=== PATIENT | female | born 1985 | race Caucasian/White ===

== ENCOUNTER 2019-08-07 10:08 | Emergency (ER) | payer OTHER ==
[~2019-08-07] VITALS: Ht 152 cm; Wt 81.0 kg
[2019-08-07 10:44] LABS: CLARITY,URINE CLOUDY; COLOR,URINE DARK YELLOW; GLUCOSE, URINE (UA) NEGATIVE (NEGATIVE); KETONES,URINE NEGATIVE (NEGATIVE); LEUKOCYTE ESTERASE ,URINE NEGATIVE (NEGATIVE); NITRITE,URINE NEGATIVE (NEGATIVE); PH,URINE 5.5 (5-9); PROTEIN,URINE 2+ (NEGATIVE)
[2019-08-07 10:46] LABS: BASOPHILS # (AUTO) 0.1 10^3/uL (0.0-0.1); BASOPHILS % (AUTO) 1 % (0-10); EOSINOPHILS # (AUTO) 0.1 10^3/uL (0.0-0.3); EOSINOPHILS % (AUTO) 1 % (0-10); HEMATOCRIT 39 % (35-52); HEMOGLOBIN 13.4 G/DL (11.5-16.0); LYMPHOCYTES # (AUTO) 1.4 X 10^3 (1.0-4.0); LYMPHOCYTES % (AUTO) 21 % (12-44); MEAN CORPUSCULAR HEMOGLOBIN 34 PG (25-34); MEAN CORPUSCULAR HGB CONC 34 G/DL (32-36); MEAN CORPUSCULAR VOLUME 100 FL (80-99); MEAN PLATELET VOLUME 11.9 FL (7.4-10.4); MONOCYTES # (AUTO) 0.6 X 10^3 (0.0-1.0); MONOCYTES % (AUTO) 9 % (0-12); NEUTROPHILS # (AUTO) 4.7 X 10^3 (1.8-7.8); NEUTROPHILS % (AUTO) 69 % (42-75); PLATELET COUNT 224 10^3/uL (130-400); RED CELL DISTRIBUTION WIDTH 13.2 % (10.0-14.5); WHITE BLOOD COUNT 6.9 10^3/uL (4.3-11.0)
[2019-08-07 10:59] LABS: BACTERIA,URINE FEW /HPF; BILIRUBIN,URINE 1+ (NEGATIVE); SQUAMOUS EPITHELIAL CELL,UR 25-50 /HPF
[2019-08-07 11:00] LABS: AMORPHOUS SEDIMENT,UR FEW AMOR URATES /LPF
[2019-08-07 11:03] LABS: BUN/CREATININE RATIO 12; CALCIUM 9.2 MG/DL (8.5-10.1); CARBON DIOXIDE 21 MMOL/L (21-32); CHLORIDE 105 MMOL/L (98-107); CREATININE SERUM 0.75 MG/DL (0.60-1.30); GFR ESTIMATED > 60; GLUCOSE 95 MG/DL (70-105); SODIUM 135 MMOL/L (135-145)
--- NOTE | 2019-08-07 13:08 | ED GU-Female ---
General Chief Complaint: SALES ASSISTANT DISPLAYS Stated Complaint: 5 WKS PREG/VAG BLEEDING Nursing Triage Note: PT CO OF VAGINAL BLEEDING SMALL AMOUNT AND IS . LMP 06/19 Nursing Sepsis Screen: No Definite Risk Source: patient Exam Limitations: no limitations History of Present Illness Date Seen by Provider: Aug 07, 2019 Time Seen by Provider: 13:08 Initial Comments 33 year old female patient presents with c/o a small amount of vaginal bleeding at 0930 this AM x 1 episode when she wiped and a small amount of blood in the toilet. Patient reports her last menstrual period was 06/19/19, but states she had intercourse July 02 and one time during the first week of July. Den ies having intercourse for several weeks before July 02. Denies abdominal pain, dysuria, frequency, hematuria. Patient reports similar symptoms with her second . Patient is scheduled to see Dr. Capone on August 30 for her first appointment. Timing/Duration: this morning, gone now Severity/Quality: mild Location: vaginal Activities at Onset: other (urinating) Prior Genitourinary Problems: none Sexual [place] History: less than 2 months ago, single partner Modifying Factors: Worsens With Other (denies modifying factors) Allergies and Home Medications Allergies Coded Allergies: No Known Drug Allergies (Unverified , 08/07/19) Home Medications Nitrofurantoin Monohyd/M-Cryst 100 Mg Capsule, 1 TAB PO BID Prescribed by: HERLINDA MICHELLE on 08/07/19 1345 Patient Home Medication List Home Medication List Reviewed: Yes Review of Systems Review of Systems Constitutional: No chills, No diaphoresis, No dizziness, No fever, No malaise, No weakness EENTM: no symptoms reported Respiratory: No cough, No dyspnea on exertion, No phlegm, No short of breath Cardiovascular: No chest pain, No edema, No palpitations, No syncope Gastrointestinal: No abdominal pain, No constipation, No diarrhea, No loss of appetite, No nausea, No vomiting Genitourinary: see HPI; denies burning, denies discharge, denies dysuria, denies frequency, denies flank pain, denies pain; other (vaginal bleeding) : Yes LMP: Jun 19, 2019 Musculoskeletal: No back pain Skin: no symptoms reported Psychiatric/Neurological: No Symptoms Reported Endocrine: No Symptoms Reported All Other Systemes Reviewed Negative Unless Noted: Yes (Negative excepted noted.) Past [id number]-[id number] Hx Past Med/Social Hx: Reviewed Nursing Past Med/Soc Hx Patient Social History Recent Foreign Travel: No Contact w/Someone Who Travel: No Recent Infectious Disease Expo: No Past Medical History Surgeries: Yes Section Respiratory: No Cardiac: No Neurological: No : Yes Expected Date of Delivery: Mar 24, 2020 Last Menstrual Period: Jun 19, 2019 Hx : 3 Hx Para: 2 Hx Total # of Abortions (Sp): 0 Reproductive Disorders: No Female Reproductive Disorders: Denies Genitourinary: No Gastrointestinal: No Musculoskeletal: No Endocrine: No Family Medical History Reviewed Nursing Family Hx No Pertinent Family Hx Physical Exam Vital Signs Vital Signs - First Documented 08/07/19 10:12 Temp 36.8 Pulse 74 Resp 20 B/P (MAP) 133/79 (97) Pulse Ox 100 Capillary Refill : Less Than 3 Seconds Height, Weight, BMI Height: '" Weight: lbs. oz. kg; 35.00 BMI Method: General Appearance: WD/WN, no apparent distress HEENT: PERRL/EOMI, pharynx normal Neck: supple, normal inspection Cardiovascular: normal peripheral pulses, regular rate, rhythm, no edema, no gallop, no murmur Respiratory: lungs clear, normal breath sounds, no respiratory distress, no accessory muscle use Gastrointestinal: normal bowel sounds, non tender, soft, no organomegaly; No distended Pelvic: other (pelvic exam deferred. Patient states she is scheduled to see Dr. Capone on August 30.) Back: normal inspection, no CVA tenderness Extremities: no pedal edema, normal capillary refill Neurologic/Psychiatric: alert, normal mood/affect, oriented x 3 Skin: normal color, warm/dry Progress/Results/Core Measures Suspected Sepsis Recent Fever Within 48 Hours: No Infection Criteria Present: None New/Unexplained Altered Menta: No Sepsis Screen: No Definite Risk SIRS Temperature: Pulse: 74 Respiratory Rate: 20 Laboratory Tests 08/07/19 10:39: White Blood Count 6.9 Blood Pressure 133 /79 Mean: 97 Laboratory Tests 08/07/19 10:39: Creatinine 0.75, Platelet Count 224 Results/Orders Lab Results Laboratory Tests Test 08/07/19 10:15 08/07/19 10:39 Range/Units Urine Color DARK YELLOW Urine Clarity CLOUDY Urine pH 5.5 5-9 Urine Specific [place] >=1.030 1.016-1.022 Urine Protein 2+ H NEGATIVE Urine Glucose (UA) NEGATIVE NEGATIVE Urine Ketones NEGATIVE NEGATIVE Urine Nitrite NEGATIVE NEGATIVE Urine Bilirubin 1+ H NEGATIVE Urine Urobilinogen 1.0 < = 1.0 MG/DL Urine Leukocyte Esterase NEGATIVE NEGATIVE Urine RBC (Auto) 3+ H NEGATIVE Urine RBC NONE /HPF Urine WBC 5-10 H /HPF Urine Squamous Epithelial Cells 25-50 H /HPF Urine Crystals NONE /LPF Urine Amorphous Sediment FEW MAURILIO URATES H /LPF Urine Bacteria FEW H /HPF Urine Casts NONE /LPF Urine Mucus NEGATIVE /LPF Urine Culture Indicated YES White Blood Count 6.9 4.3-11.0 10^3/uL Red Blood Count 3.93 L 4.35-5.85 10^6/uL Hemoglobin 13.4 11.5-16.0 G/DL Hematocrit 39 35-52 % Mean Corpuscular Volume 100 H 80-99 FL Mean Corpuscular Hemoglobin 34 25-34 PG Mean Corpuscular Hemoglobin Concent 34 32-36 G/DL Red Cell Distribution Width 13.2 10.0-14.5 % Platelet Count 224 130-400 10^3/uL Mean Platelet Volume 11.9 H 7.4-10.4 FL Neutrophils (%) (Auto) 69 42-75 % Lymphocytes (%) (Auto) 21 12-44 % Monocytes (%) (Auto) 9 0-12 % Eosinophils (%) (Auto) 1 0-10 % Basophils (%) (Auto) 1 0-10 % Neutrophils # (Auto) 4.7 1.8-7.8 X 10^3 Lymphocytes # (Auto) 1.4 1.0-4.0 X 10^3 Monocytes # (Auto) 0.6 0.0-1.0 X 10^3 Eosinophils # (Auto) 0.1 0.0-0.3 10^3/uL Basophils # (Auto) 0.1 0.0-0.1 10^3/uL Sodium Level 135 135-145 MMOL/L Potassium Level 4.0 3.6-5.0 MMOL/L Chloride Level 105 98-107 MMOL/L Carbon Dioxide Level 21 21-32 MMOL/L Anion Gap 9 5-14 MMOL/L Blood Urea Nitrogen 9 7-18 MG/DL Creatinine 0.75 0.60-1.30 MG/DL Estimat Glomerular Filtration Rate > 60 BUN/Creatinine Ratio 12 Glucose Level 95 70-105 MG/DL Calcium Level 9.2 8.5-10.1 MG/DL Human Chorionic Gonadotropin, Quant 31954 H <5 MIU/ML My Orders Orders - HERLINDA MICHELLE Heart Tones (08/07/19 12:09) Vital Signs/I&O 08/07/19 08/07/19 10:12 14:07 Temp 36.8 36.8 Pulse 74 74 Resp 20 20 B/P (MAP) 133/79 (97) 133/79 (97) Pulse Ox 100 100 Capillary Refill : Less Than 3 Seconds Blood Pressure Mean: 97 Departure Communication (Admissions) Patient seen and evaluated. All laboratory findings discussed with the patient. We'll plan for discharge to home. Patient given an order for outpatient pelvic ultrasound and repeat quantitative hCG for this week. Patient is to call and schedule the outpatient ultrasound. I've instructed the patient follow-up with [facility] this week for recheck and for formal pelvic exam. Patient instructed to return immediately to the emergency department for worsened symptoms or any other concerns. Impression Primary Impression: Threatened miscarriage in early Additional Impression: UTI (urinary tract infection) Qualified Codes: N30.00 - Acute cystitis without hematuria Disposition: HOME, SELF-CARE Condition: Improved Departure-Patient Inst. Decision time for Depature: 13:42 Referrals: [facility][1[facility] (PCP/Family) Primary Care Physician Patient Instructions: Threatened Miscarriage (DC), Urinary Tract Infection, Adult (DC) Add. Discharge Instructions: All discharge instructions reviewed with patient and/or family. Voiced understanding. Medications as instructed. Tylenol extra strength [id number] as needed for pain. Stay well-hydrated. 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 Do NOT use tampons. Follow-up with [facility] as an outpatient this week for recheck. Call tomorrow morning for an appointment time. Call scheduling or [facility] tomorrow morning to schedule the outpatient pelvic ultrasound as ordered. Repeat the quantitative hCG level on August 10 as instructed. Return to the emergency department immediately for worsened symptoms, fever, bleeding with greater than 2 pads per hour for greater than 2 hours (total of 4 pads in 2 hours), pain, dizziness, shortness of air, chest pain, or any other concerns. Scripts Nitrofurantoin Monohyd/M-Cryst (Macrobid 100 mg Capsule) 100 Mg Capsule 1 TAB PO BID, #14 CAP 0 Refills Prov: HERLINDA MICHELLE 08/07/19 Work/School Note: Work Release Form Date Seen in the Emergency Department: Aug 07, 2019 Return to Work: Aug 09, 2019 Other Restrictions Listed Below: No strenuous activity or lifting until released by [facility]. HERLINDA MICHELLE Aug 07, 2019 13:08
[2019-08-07] MEDS ORDERED: NITR-65 PO (13:45)
[2019-08-07 14:07] VITALS: BP 133/79
== END 2019-08-07 14:06 | disposition home or self-care (01) ==
LOC: ER 10:09
DX: O20.0 Threatened abortion (principal); O23.41 Unspecified infection of urinary tract in pregnancy, first trimester; Z3A.01 Less than 8 weeks gestation of pregnancy
CPT/HCPCS: 36415; 80048; 81000; 84702; 85025; 86900; 86901; 87088